=== PATIENT | male | born 1945 | race Caucasian/White ===

== ENCOUNTER 2019-04-18 14:12 | Emergency (ER) | payer MEDICARE ==
[~2019-04-18] VITALS: Ht 170.2 cm; Wt 90.6 kg
[2019-04-18 15:02] LABS: BASOPHILS # (AUTO) 0.05 x10^3/uL (0-0.1); BASOPHILS % (AUTO) 1 % (0-1); EOSINOPHILS # (AUTO) 0.08 x10^3/uL (0-0.4); EOSINOPHILS % (AUTO) 1 % (1-7); LYMPHOCYTES # (AUTO) 2.12 x10^3/uL (1-3.4); LYMPHOCYTES % (AUTO) 22 % (22-44); MD NO; MEAN CORPUSCULAR HEMOGLOBIN 31.8 pg (27.5-34.5); MEAN CORPUSCULAR HGB CONC 34.3 g/dL (33.2-36.2); MEAN CORPUSCULAR VOLUME 92.5 fL (81-97); MEAN PLATELET VOLUME 7.2 fL (7.4-10.4); MONOCYTES # (AUTO) 0.52 x10^3/uL (0.2-0.8); MONOCYTES % (AUTO) 6 % (2-9); NEUTROPHILS # (AUTO) 6.66 x10^3/uL (1.8-6.8); NEUTROPHILS % (AUTO) 71 % (42-75); PLATELET COUNT 210 x10^3/uL (130-400); RED BLOOD COUNT 5.17 x10^6/uL (4.38-5.82); RED CELL DISTRIBUTION WIDTH 13.4 % (9.4-14.8)
[2019-04-18 15:12] LABS: ALANINE AMINOTRANSFERASE 30 U/L (12-78); ALBUMIN 3.8 g/dL (3.4-5.0); ANION GAP 8 mmol/L (5-15); CALCIUM 8.9 mg/dL (8.5-10.1); CHLORIDE 104 mmol/L (98-107); CREATININE 1.45 mg/dL (0.7-1.3)
[2019-04-18 15:16] LABS: ALKALINE PHOSPHATASE 58 U/L (45-117); BILIRUBIN,TOTAL 0.8 mg/dL (0.2-1.0); TOTAL PROTEIN 7.4 g/dL (6.4-8.2); TROPONIN I < 0.015 ng/mL (0.000-0.045)
--- NOTE | 2019-04-18 18:06 | NUR ---
MD at bedside, pt on cardiac and pulse ox monitoring. Rm air sats above 95%. pt to get resp treatment then recheck
[2019-04-18] MEDS ORDERED: ALBUTEROL SULFATE 2.5 MG/3 ML NPPB ONE (18:30)
[2019-04-18 19:02] VITALS: BP 122/74
--- NOTE | 2019-04-18 19:03 | NUR ---
Pt reports ready for discharge, feeling "better" after resp treatment. denies sob/cp, rm air sats above 94%. Pt ambualted to registration without difficulty and with steady gait. Verbalized understanding of dc instructions and importance of returning for any worsening/concerning s/s
== END 2019-04-18 19:07 | disposition home or self-care (01) ==
LOC: ED 18:50
DX: J06.9 Acute upper respiratory infection, unspecified (principal); Z85.038 Personal history of other malignant neoplasm of large intestine
CPT/HCPCS: 36415; 71045; 80053; 83880; 84484; 85025; 93005; 94640; 99284; J7512; J7613